=== PATIENT | male | born 1960 | race Caucasian/White ===

== ENCOUNTER 2019-06-02 22:34 | Emergency (ER) | payer OTHER ==
[~2019-06-02] VITALS: Ht 188 cm; Wt 86.2 kg
[2019-06-02 22:42] VITALS: BP 136/84
--- NOTE | 2019-06-02 22:42 | NUR ---
ED Nurse Note: Walk-in patient presents with complaints of divya t work, injury to right extremity. Patient has ice pack in hand.
[2019-06-02] MEDS ORDERED: Tetanus/Diptheria/Pertussis IM ONE (23:00)
--- NOTE | 2019-06-02 23:00 | Emergency Room Report ---
History of Present Illness General Chief Complaint: Multiple Trauma/Fall Source: Patient Present Illness HPI Disclaimer: Please note that this report is being documented using DRAGON technology. This can lead to erroneous entry secondary to incorrect interpretation by the dictating instrument. HPI: 59-year-old [id number] male presents for evaluation after a fall. The patient works at a [employer] and slipped in the dark carrying a tray today. He fell onto outstretched right hand complaining of pain in the pinky finger but has full range of motion. He denies pain in the wrist, elbow. He sustained a small abrasion to the left thumb but denied any significant bleeding. He washed it and covered it with a Band-Aid. No head injury, no loss of conscious, denies neck, pelvis, knee pain. Denies any other injuries. Is not take blood thinners. Last tetanus shot approximately 10 years ago PMH: Denies PSH: Denies Allergies: Denies Social Hx: Denies drug alcohol or tobacco abuse Allergies: Coded Allergies: No Known Allergies (Unverified , 06/02/19) Nursing Documentation-PMH Past Medical History: No Stated History Review of Systems All Other Systems: negative except mentioned in HPI Physical Exam Vital Signs Date Time Temp Pulse Resp B/P (MAP) Pulse Ox O2 Delivery O2 Flow Rate FiO2 06/02/19 22:42 98.2 50 16 136/84 (101) 99 Room Air General: Awake and alert, no acute distress HEENT: NC/AT. EOMI. Resp: Normal work of breathing. Skin: Abrasion over the left thumb and over the right elbow. No deep lacerations. No rash. MSK: Normal tone and bulk. Moving all extremities. No obvious deformity. No tenderness in the anatomic snuffbox of the right hand. There is tenderness in the proximal phalanx of the right pinky finger. Able to flex and extend all digits. Able to flex and extend the wrist, flex and extend the elbow as well as supinate and pronate. Neuro: Awake and alert. Mentating appropriately. Back/Spine: No midline tenderness in the cervical, thoracic or lumbosacral spine. Medical Decision Making Diagnostic Impression: Primary Impression: Contusion of right hand ER Course 59-year-old male presents for evaluation of right hand pain after a fall. We will update his tetanus and have an x-ray of the right hand appears he has not suffered any major injury. Will rule out fracture. The patient is declined any pain medication at this time. Other X-Ray Diagnostic Results Other X-Ray Diagnostic Results : X-Ray ordered: Right hand # of Views/Limited Vs Complete: 3 View Indication: Pain EP Interpretation: Yes Interpretation: no dislocation, no soft tissue swelling, no fractures Impression: No acute disease Electronically Signed by: Electronically signed by Dr. Bhavesh Gutierrez Reevaluation Time: 23:31 Last Vital Signs Date Time Temp Pulse Resp B/P (MAP) Pulse Ox O2 Delivery O2 Flow Rate FiO2 06/02/19 22:42 98.2 50 16 136/84 (101) 99 Room Air Reevaluation Impression No evidence of fracture dislocation on right hand x-ray. The abrasion over the left thumb does not require any cleaning or closure. The patient will be discharged home. His paperwork has been filled out for him at his request. May return to full duties. Discussed appropriate NSAID use for pain and swelling as well as ice. Discussed reasons to return to the emergency department need for follow-up with the PMD. He understands and agrees with treatment plan was discharged home. Disposition: HOME, SELF-CARE Condition: Stable Bhavesh Gutierrez MD Jun 02, 2019 23:00
--- NOTE | 2019-06-02 23:32 | NUR ---
ED Nurse Note: PATIENT CLEARED FOR DISCHARGE BY ERMD, NO S/S OF ACUTE DISTRESS. PATIENT VERBALIZED UNDERSTANDING OF DISCHARGE INSTRUCTIONS AND DEPARTED WITH ALL BELONGINGS.
[2019-06-02 23:37] VITALS: BP 136/84
--- NOTE | 2019-06-03 11:15 | Diagnostic Imaging Report ---
Indication: Right hand pain Findings: 3 views of the right hand were obtained. Normal bony mineralization and alignment are demonstrated. No acute fractures, erosions, or periosteal reaction are seen. Soft tissues are unremarkable. Impression: No acute findings.
== END 2019-06-02 23:37 | disposition home or self-care (01) ==
LOC: EMR 23:09
DX: S60.221A Contusion of right hand, initial encounter (principal); Z23 Encounter for immunization; W01.0XXA Fall on same level from slipping, tripping and stumbling without subsequent striking against object, initial encounter; Y92.9 Unspecified place or not applicable; Y99.0 Civilian activity done for income or pay
CPT/HCPCS: 90471; 90715; 99283